=== PATIENT | female | born 1945 | race Caucasian/White ===

== ENCOUNTER 2025-03-04 15:11 | Emergency (ER) | payer MEDICARE, BC, SELFPAY ==
[2025-03-04 15:16] VITALS: BP 155/86
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
[2025-03-04] MEDS: NORCO 5/325 1 TABLET PO (17:20)
[2025-03-04 17:41] VITALS: BP 150/67
== END 2025-03-04 17:42 | disposition home or self-care (01) ==
LOC: EMR 15:11
PROVIDERS: EMERGENCY PHYSICIAN Emergency Medicine; FAMILY PHYSICIAN Family Medicine
DX: S42.295A Other nondisplaced fracture of upper end of left humerus, initial encounter for closed fracture (principal); W01.0XXA Fall on same level from slipping, tripping and stumbling without subsequent striking against object, initial encounter; I10 Essential (primary) hypertension
CPT/HCPCS: 99283; 73030; 73060; 73080